=== PATIENT | male | born 1985 | race Caucasian/White ===

== ENCOUNTER 2021-06-07 03:48 | Emergency (ER) | payer OTHER ==
[2021-06-07] MEDS ORDERED: Sulfameth/Trimethoprim DS 800-160mg TAB ONE (04:27)
[2021-06-07] MEDS ORDERED: Ketorolac Tromethamine 30 MG/ML VIAL ONE (04:27)
== END 2021-06-07 04:22 | disposition home or self-care (01) ==
LOC: CSHERS 03:48
DX: M20.011 Mallet finger of right finger(s) (principal); I10 Essential (primary) hypertension
CPT/HCPCS: 96372; J1885

== ENCOUNTER 2021-06-08 02:58 | Emergency (ER) | payer OTHER ==
[2021-06-08] MEDS ORDERED: HYDROcodone/Acetaminophen 5/325 mg Tablet ONE (04:27)
== END 2021-06-08 04:34 | disposition home or self-care (01) ==
LOC: CSHERS 02:58
DX: M20.012 Mallet finger of left finger(s) (principal); X58.XXXA Exposure to other specified factors, initial encounter; Y92.69 Other specified industrial and construction area as the place of occurrence of the external cause; Z79.899 Other long term (current) drug therapy
CPT/HCPCS: 99283

== ENCOUNTER 2021-06-17 12:15 | Emergency (ER) | payer OTHER | END 2021-06-17 13:05 | disposition home or self-care (01) | LOC: CSHERS 12:15 | DX: M20.011 Mallet finger of right finger(s) (principal) | CPT/HCPCS: 99283 ==

== ENCOUNTER 2021-07-05 23:02 | Emergency (ER) | payer OTHER | END 2021-07-05 23:29 | disposition home or self-care (01) | LOC: CSHERS 23:02 | DX: M20.011 Mallet finger of right finger(s) (principal) | CPT/HCPCS: 99283 ==

== ENCOUNTER 2023-09-14 17:55 | Emergency (ER) | payer OTHER ==
[2023-09-14] MEDS ORDERED: Orphenadrine Citrate 60 MG/2 ML VIAL ONE (19:54)
[2023-09-14] MEDS ORDERED: Ondansetron ODT 4 MG TAB ONE (19:54)
[2023-09-14] MEDS ORDERED: Ketorolac Tromethamine 30 MG (1 mL) VIAL ONE (19:54)
== END 2023-09-14 22:00 | disposition home or self-care (01) ==
LOC: CSHERS 17:55
DX: S06.0X0A Concussion without loss of consciousness, initial encounter (principal); S40.811A Abrasion of right upper arm, initial encounter; M79.671 Pain in right foot; G89.29 Other chronic pain; M54.9 Dorsalgia, unspecified; Z87.39 Personal history of other diseases of the musculoskeletal system and connective tissue; Z98.890 Other specified postprocedural states; Z55.6 Problems related to health literacy; Z75.3 Unavailability and inaccessibility of health-care facilities; V49.9XXA Car occupant (driver) (passenger) injured in unspecified traffic accident, initial encounter
CPT/HCPCS: 96372; J1885; J2360; Q0162